=== PATIENT | male | born 1945 | race Caucasian/White ===

== ENCOUNTER 2017-02-03 19:44 | Inpatient (IN) | payer MEDICARE, OTHER ==
--- NOTE | ~2017-02-03 | OP ---
Record Of Operation [facility] [address] [place]. [address] NAME: COMFORT MENDES : 49 STATUS : ADM [place] PAT#: [id number] AGE: 71 ADM/REG DATE : 02/03/17 MR#: [id number] REPORT SERV DATE: 02/05/17 DICTATED BY: ALEX GOODWIN DATE: 02/05/17 REPORT STATUS : Draft TRANSCRIBED BY: MODCharity DATE: 02/05/17 DATE OF PROCEDURE: 02/05/2017 PTCA REPORT INDICATION FOR THIS PROCEDURE: Acute coronary syndrome. PROCEDURE IN DETAIL: The patient had already been prepped and draped. A 6-Slovenian sheath was then placed in the left femoral artery from preceding cardiac catheterization. A 6 VL4 coronary guiding catheter was advanced to the left coronary ostium. Left coronary artery injections confirmed the presence of 100% occlusion of the previously stented mid vessel segment of the dominant left circumflex coronary artery. A 0.014 Graphix guidewire was passed through the occlusion and positioned distally in the vessel. The vessel was then dilated with a 2.5/12 Emerge balloon at up to 15 atmospheres of pressure for 15 seconds in duration. Because of some plaque shift into the adjacent posterolateral branch. A 0.014 Luge guidewire was passed into the distal posterolateral branch in the ostium and this vessel was dilated with 2.0/12 Emerge balloon at up to 15 atmospheres of pressure for 15 seconds in duration. A 2.75/32 Synergy stent was then deployed in the mid left circumflex coronary artery at up to 15 atmospheres pressure for 15 seconds in duration. The stent was then dilated with a 3.0/12 NC Emerge balloon at up to 15 atmospheres pressure for 15 seconds in duration. Following removal of the balloon and guidewire, final left coronary injection showed 0% residual stenosis at the site of stent implantation with DEB grade 3 distal flow. The previously stented second obtuse marginal branch remained occluded, but fills via left- to-left collaterals. IMPRESSION: Recanalization of occluded mid dominant left circumflex coronary artery with placement of drug-eluting stent. RAJNI/BERNARDINO Alex Goodwin M.D., [place] / [id number] CC: Alex Goodwin M.D., Flakita Olvera M.D.
--- NOTE | ~2017-02-03 | PRECARD ---
H&P [facility] [address] [facility] [place]. [address] NAME: COMFORT MENDES : 49 STATUS : ADM [place] PAT#: [id number] AGE: 71 ADM/REG DATE : 02/03/17 MR#: [id number] REPORT SERV DATE: 02/04/17 DICTATED BY: MYA REMY DATE: 02/04/17 REPORT STATUS : Draft TRANSCRIBED BY: MODCharity DATE: 02/04/17 DATE OF ADMISSION: 02/03/2017 HISTORY OF PRESENT ILLNESS: The patient is a 71-year-old, white male with significant history of coronary artery disease who presented to the emergency room last evening with complaints of left retrosternal chest pain as well as some increasing dyspnea on exertion over the past week. He reports that he began having some intermittent chest discomfort about a week ago, but it has progressively worsened, and he decided to present to the hospital. He thinks it is similar to his previous angina. The patient reports that his symptoms are worse with exertion, but he has also had some resting episodes as well. Initial troponins are negative x2 and EKG showed no acute injury pattern. Currently, he is resting in bed, on a heparin drip, in no acute distress. He does report some chest discomfort this morning that is radiating through to his back and associated with some mild nausea. PAST MEDICAL HISTORY: Significant for coronary artery disease, status post previous stenting as well as hypertension, hyperlipidemia, diabetes, and COPD. The patient's last cardiac catheterization was on 01/12/2013 at which time he underwent stenting of the distal left circumflex as well as PTCA of the in-stent restenosis of the mid circumflex and PTCA of the third obtuse marginal branch. His left ventricular ejection fraction was 65% at that time. There were distal collateral vessels from the RCA to the left circumflex distribution. No significant disease in the LAD. SOCIAL HISTORY: The patient reports about a 50 pack-year smoking history and continues to smoke up to a pack per day. FAMILY HISTORY: Positive for coronary artery disease with sudden cardiac in his brother at age 55 and in his father at age 72. REVIEW OF SYSTEMS: The patient reports some coughing and seasonal allergies recently but no significant sputum production and no fevers or chills. He reports some mild nausea but no vomiting, diarrhea or dysuria. No syncope or presyncope. PHYSICAL EXAMINATION: VITAL SIGNS: Blood pressure is 159/70, heart rate is 65 and regular, respirations 16 and nonlabored. The patient is afebrile. GENERAL APPEARANCE: The patient is a well-developed, well-nourished white male, in no acute distress. HEENT: Unremarkable. NECK: No jugular venous distention with good carotid upstroke. No carotid bruit is appreciated. CHEST: Clear to auscultation bilaterally. CARDIOVASCULAR: PMI is nondisplaced. S1 is normal. S2 is narrowly split. No gallop is present. ABDOMEN: Soft and nontender with normal bowel sounds. H&P [address] [address] NAME: COMFORT MENDES : 49 STATUS : ADM [place] PAT#: [id number] AGE: 71 ADM/REG DATE : 02/03/17 MR#: [id number] REPORT SERV DATE: 02/04/17 DICTATED BY: MYA REMY DATE: 02/04/17 REPORT STATUS : Draft TRANSCRIBED BY: BERNARDINO DATE: 02/04/17 EXTREMITIES: No cyanosis, clubbing, or edema. SKIN: Warm and dry with no pallor or icterus. NEURO/PSYCH: The patient is alert and oriented x3 with appropriate affect. LABORATORY AND DIAGNOSTIC DATA: EKG shows sinus bradycardia at a rate of 58 beats per minute with nonspecific ST-T changes, but no acute injury pattern noted. Chest x-ray shows no acute cardiopulmonary process. Troponin is negative x2. Chemistry panel shows sodium of 143, potassium 4.3, BUN 15, creatinine 0.99, glucose 129, magnesium 2.3. CBC shows a white count of 7.3, hemoglobin 9.4, hematocrit 35.1, and platelet count 307. IMPRESSION: 1. Unstable angina. 2. Coronary artery disease. 3. Hypertension. 4. Hyperlipidemia. 5. Tobacco abuse. 6. Diabetes mellitus type 2. PLAN: 1. Continue home medications except for metformin along with a heparin drip. 2. Plan cardiac catheterization for definitive evaluation of the coronary anatomy and possible percutaneous coronary intervention. 3. Encouraged the patient to stop smoking. AIDANB/MODL Mya Remy NP / [id number] CC: Alex Goodwin M.D., FAntonellaCBeverlyC.
--- NOTE | ~2017-02-03 | OP ---
Record Of Operation [facility] [address] [place]. [address] NAME: COMFORT MENDES : 49 STATUS : ADM [place] PAT#: [id number] AGE: 71 ADM/REG DATE : 02/03/17 MR#: [id number] REPORT SERV DATE: 02/05/17 DICTATED BY: ALEX GOODWIN DATE: 02/05/17 REPORT STATUS : Draft TRANSCRIBED BY: BERNARDINO DATE: 02/05/17 DATE OF PROCEDURE: 02/05/2017 CARDIAC CATHETERIZATION INDICATION FOR THIS PROCEDURE: Acute coronary syndrome. PROCEDURE IN DETAIL: The patient was prepped and draped in usual sterile fashion. Moderate IV sedation was administered. Using the Seldinger technique, 6-New Zealander sheath was placed in the left femoral artery after local infiltration of lidocaine. A 6 FL4 coronary catheter was advanced in the left coronary ostium. Left coronary artery injections were performed in multiple views. Left coronary catheter was exchanged for 6 FR4 coronary catheter which was advanced to the right coronary ostium. Right coronary artery injections were then performed in the OSWALDO view. The right coronary catheter was then exchanged for a 6-New Zealander pigtail catheter which was advanced into the left ventricular cavity. Pressures were measured across the aortic valve and left ventricular angiogram was obtained in the AVITIA projection. The pigtail catheter was removed over a guidewire and sheath left in place. There were no apparent complications. RESULTS: 1. Pressures: The left ventricular end-diastolic pressure was 18 mmHg. No gradient was present across the aortic valve. 2. Left ventricular angiogram: Left ventricle showed inferobasal hypokinesis with global ejection fraction of 55%. 3. Coronary arteriograms: The left main coronary artery is normal. Left anterior descending coronary artery is normal. The left circumflex coronary artery is a dominant vessel and the previously stented mid vessel segment just distal to the origin of the first obtuse marginal branch is totally occluded. There are some [id number] bridging collaterals to the distal left circumflex coronary artery. The right coronary artery is a small nondominant vessel and is normal. IMPRESSION: Total occlusion of previously stented mid vessel segment in dominant left circumflex coronary artery. PLAN: Proceed with PCI of left circumflex coronary artery. RAJNI/BERNARDINO Alex Goodwin M.D., CorrineCBeverlyC. / [id number] CC: Record Of Operation [address] [address] NAME: COMFORT MENDES : 49 STATUS : ADM [place] PAT#: [id number] AGE: 71 ADM/REG DATE : 02/03/17 MR#: [id number] REPORT SERV DATE: 02/05/17 DICTATED BY: ALEX GOODWIN B DATE: 02/05/17 REPORT STATUS : Draft TRANSCRIBED BY: MODL DATE: 02/05/17 Alex Goodwin M.D., FAntonellaCBeverlyCBeverly Olvera M.D.
[2017-02-03 18:53] LABS: BASOPHILS 0.7 %; BASOPHILS ABSOLUTE 0.05 10/3/uL (0.0-0.16); EOSINOPHILS 4.1 %; HEMATOCRIT 35.1 % (40.0-51.0); HEMOGLOBIN 9.4 g/dL (13.6-17.8); IMMATURE GRANULOCYTES 0.4 %; IMMATURE GRANULOCYTES ABSOLUTE 0.03 10/3/uL (0.0-0.11); LYMPHOCYTES 32.7 %; LYMPHOCYTES ABSOLUTE 2.39 10/3/uL (0.67-4.30); MEAN CORPUS HGB CONC 26.8 g/dL (32.0-36.0); MEAN CORPUSCULAR HEMOGLOB 18.1 pg (26.0-34.0); MEAN CORPUSCULAR VOLUME 67.8 fL (80-100); MEAN PLATELET VOLUME 9.3 fL (9.2-13.0); MONOCYTES 7.9 %; MONOCYTES ABSOLUTE 0.58 10/3/uL (0.21-1.20); NEUTROPHILS 54.2 %; NEUTROPHILS ABSOLUTE 3.95 10/3/uL (2.02-8.40); PLATELET COUNT 307 10/3/uL (150-400); RBC DISTRIBUTION WIDTH 19.8 % (12.0-16.0); RED CELL COUNT 5.18 10/6/uL (4.7-6.1); WHITE BLOOD CELLS 7.3 10/3/uL (4.5-10.5)
[2017-02-03 18:54] LABS: MANUAL DIFF NO %
[2017-02-03 18:59] LABS: PARTIAL THROMBO TIME 29.4 SEC (22.5-37.2); PROTIME (NOT ORD) 13.3 SEC (12.0-14.5)
[2017-02-03 19:07] LABS: BUN (BLOOD UREA NITROGEN) 15 MG/DL (6-23); CALCIUM, SERUM 8.4 MG/DL (8.5-10.4); CHEST PAIN PROFILE TAT 0 Hrs 20 Mins; CHLORIDE, SERUM 108 MMOL/L (96-112); CO2 (CARBON DIOXIDE) 26 MMOL/L (24-34); CREATININE 0.99 MG/DL (0.70-1.30); GFR AFRICAN AMERICAN 90 ML/MIN (>=60); GFR NON AFRICAN AMERICAN 77 ML/MIN (>=60); GLUCOSE, SERUM 129 MG/DL (60-99); POTASSIUM, SERUM 4.4 MMOL/L (3.5-5.3); SODIUM, SERUM 143 MMOL/L (135-148); TROPONIN I <0.02 NG/ML (<0.05)
[2017-02-03 19:09] LABS: ANISOCYTOSIS 1+ (5-10/OIF) (0-5/OIF); OVALOCYTES 1+ (3-10/OIF) (0-2/OIF); SCHISTOCYTES OCC (0-2/OIF)
[~2017-02-03 19:44] MED LIST: ALTA2.5 PO; AMB10 PO; ASAB PO; CIP5 PO; EFFIENT10 PO; GLUCOPHAGE1000 MG PO; GLUCPH PO; IRON325 MG PO; LIBRAX PO; LIPITOR20 PO; LOP25 PO; NAP500 PO; PRAVACHOL40 MG PO; PREV15 PO; PREVACID PO; SIN25 PO; TOPXL25 PO; TORATAB PO; TRAZ50 PO; ZOCOR40 PO
[2017-02-03] MEDS ORDERED: ASAB PO (19:46)
[2017-02-03] MEDS ORDERED: TOPXL25 PO (19:46)
[2017-02-03] MEDS ORDERED: GLUCOPHAGE1000 MG PO (19:47)
[2017-02-03] MEDS ORDERED: NEUR300 PO (19:48)
[2017-02-03] MEDS ORDERED: SIN25 PO (19:48)
[2017-02-03] MEDS ORDERED: TRAZ50 PO (19:48)
[2017-02-04 02:24] LABS: BASOPHILS 0.5 %; BASOPHILS ABSOLUTE 0.04 10/3/uL (0.0-0.16); EOSINOPHILS 4.8 %; EOSINOPHILS ABSOLUTE 0.37 10/3/uL (0.0-0.53); HEMATOCRIT 33.4 % (40.0-51.0); HEMOGLOBIN 9.2 g/dL (13.6-17.8); IMMATURE GRANULOCYTES 0.4 %; IMMATURE GRANULOCYTES ABSOLUTE 0.03 10/3/uL (0.0-0.11); LYMPHOCYTES 39.8 %; LYMPHOCYTES ABSOLUTE 3.05 10/3/uL (0.67-4.30); MANUAL DIFF NO %; MEAN CORPUS HGB CONC 27.5 g/dL (32.0-36.0); MEAN CORPUSCULAR HEMOGLOB 18.5 pg (26.0-34.0); MEAN CORPUSCULAR VOLUME 67.3 fL (80-100); MEAN PLATELET VOLUME 8.8 fL (9.2-13.0); MONOCYTES 9.4 %; MONOCYTES ABSOLUTE 0.72 10/3/uL (0.21-1.20); NEUTROPHILS 45.1 %; NEUTROPHILS ABSOLUTE 3.45 10/3/uL (2.02-8.40); PLATELET COUNT 279 10/3/uL (150-400); RBC DISTRIBUTION WIDTH 19.7 % (12.0-16.0); RED CELL COUNT 4.96 10/6/uL (4.7-6.1); WHITE BLOOD CELLS 7.7 10/3/uL (4.5-10.5)
[2017-02-04 02:39] LABS: CHOL/HDL RATIO(NOT ORDER) 5.1 (0-5)
[2017-02-04 02:47] LABS: ANISOCYTOSIS 1+ (5-10/OIF) (0-5/OIF); PLATELET ESTIMATE ADQ (ADEQUATE); RBC MORPHOLOGY ABN (NORMAL)
[2017-02-04 03:48] LABS: ASCORBIC ACID (UR NOT ORDER) NEG (NEG); BILIRUBIN, URINE NEGATIVE (NEG); KETONE, URINE NEGATIVE (NEG); LEUKOCYTE ESTERASE(NOT OR NEG (NEG); WBC (NOT ORDERED) (RFLEX) 1 (0-5)
[2017-02-05 04:37] LABS: BASOPHILS 0.9 %; BASOPHILS ABSOLUTE 0.05 10/3/uL (0.0-0.16); EOSINOPHILS 5.1 %; HEMATOCRIT 34.6 % (40.0-51.0); HEMOGLOBIN 9.7 g/dL (13.6-17.8); IMMATURE GRANULOCYTES 0.3 %; IMMATURE GRANULOCYTES ABSOLUTE 0.02 10/3/uL (0.0-0.11); MANUAL DIFF NO %; MEAN CORPUSCULAR HEMOGLOB 18.7 pg (26.0-34.0); MEAN CORPUSCULAR VOLUME 66.8 fL (80-100); MEAN PLATELET VOLUME 9.6 fL (9.2-13.0); MONOCYTES 9.4 %; MONOCYTES ABSOLUTE 0.55 10/3/uL (0.21-1.20); NEUTROPHILS 43.3 %; NEUTROPHILS ABSOLUTE 2.54 10/3/uL (2.02-8.40); PLATELET COUNT 315 10/3/uL (150-400); RBC DISTRIBUTION WIDTH 19.5 % (12.0-16.0); RED CELL COUNT 5.18 10/6/uL (4.7-6.1); WHITE BLOOD CELLS 5.9 10/3/uL (4.5-10.5)
[2017-02-05 04:43] LABS: INTERNATIONAL NORMAL RATI 1.1 UNITS (-); PROTIME (NOT ORD) 13.7 SEC (12.0-14.5)
[2017-02-05 04:52] LABS: CALCIUM, SERUM 8.7 MG/DL (8.5-10.4); CHLORIDE, SERUM 105 MMOL/L (96-112); CHOLESTEROL 136 MG/DL (< 200); CO2 (CARBON DIOXIDE) 27 MMOL/L (24-34); CREATININE 0.84 MG/DL (0.70-1.30); GFR AFRICAN AMERICAN 104 ML/MIN (>=60); GFR NON AFRICAN AMERICAN 89 ML/MIN (>=60); HDL CHOLESTEROL 27 MG/DL (> 39); LDL CHOLESTEROL 89 MG/DL (< 130); NON-HDL CHOLESTEROL 109 MG/DL (< 160); POTASSIUM, SERUM 4.1 MMOL/L (3.5-5.3); SODIUM, SERUM 140 MMOL/L (135-148); TRIGLYCERIDE 103 MG/DL (< 150)
[2017-02-05 04:59] LABS: BUN (BLOOD UREA NITROGEN) 9 MG/DL (6-23); GLUCOSE, SERUM 95 MG/DL (60-99)
[2017-02-05 05:01] LABS: ANISOCYTOSIS 1+ (5-10/OIF) (0-5/OIF); HYPOCHROMIA 3+ (>30/OIF) (0-2/OIF); PLATELET ESTIMATE ADQ (ADEQUATE)
[2017-02-05 05:02] LABS: TARGET CELLS OCC (1-2/OIF) (0-1/OIF); TEARDROP SHAPED RBCS FEW (3-10/OIF)
[2017-02-05 12:20] LABS: CPK 53 U/L (0-200)
[2017-02-06 04:37] LABS: CPK 49 U/L (0-200)
[2017-02-06 04:48] LABS: CK-MB 1.6 NG/ML
[2017-02-06] MEDS ORDERED: BRILINTA90 MG PO (09:31)
[2017-02-06] MEDS ORDERED: LIPITOR40 PO (09:31)
== END 2017-02-06 10:00 | disposition home or self-care (01) | DRG 247 ==
LOC: ER 19:44 → 5NO 20:48 → SSU1 02-05 11:32
PROVIDERS: Emergency Medicine; Internal Medicine Interventional Cardiology; Nurse Practitioner Family; Specialist
PROC: 027034Z Dilation of Coronary Artery, One Artery with Drug-eluting Intraluminal Device, Percutaneous Approach (ICD-10-PCS; principal; 2017-02-05)
PROC: 4A023N7 Measurement of Cardiac Sampling and Pressure, Left Heart, Percutaneous Approach (ICD-10-PCS; 2017-02-05)
PROC: B2151ZZ Fluoroscopy of Left Heart using Low Osmolar Contrast (ICD-10-PCS; 2017-02-05)
PROC: B2111ZZ Fluoroscopy of Multiple Coronary Arteries using Low Osmolar Contrast (ICD-10-PCS; 2017-02-05)
DX: I25.110 Atherosclerotic heart disease of native coronary artery with unstable angina pectoris (principal); J44.9 Chronic obstructive pulmonary disease, unspecified; I10 Essential (primary) hypertension; E78.5 Hyperlipidemia, unspecified; E11.9 Type 2 diabetes mellitus without complications; F17.210 Nicotine dependence, cigarettes, uncomplicated; Z95.5 Presence of coronary angioplasty implant and graft; Z82.49 Family history of ischemic heart disease and other diseases of the circulatory system; Z82.41 Family history of sudden cardiac death
CPT/HCPCS: 71020; 80048; 80061; 81001; 82550; 82553; 82962; 83735; 84460; 84484; 85025; 85610; 85730; 93005; 93458; 99152; 99153; 99285; A9270-GY; C1725; C1769; C1874; C1887; C1894; C9600; J0583; J1170; J2250; J2405; J3010; Q9967